=== PATIENT | female | born 1955 | race Caucasian/White ===

== ENCOUNTER 2021-07-23 13:06 | Emergency (ER) | payer MEDICARE, OTHER, SELFPAY ==
[2021-07-23 13:20] VITALS: BP 157/89; PULSE 73; RESP 16; TEMP 36.6; O2SAT 97
--- NOTE | 2021-07-23 13:33 | ED.GENADULT ---
HPI - General Adult General Chief complaint: Skin/Abscess/Foreign Body Stated complaint: Rash Rt arm Time Seen by Provider: 07/23/21 13:30 Source: patient and RN notes reviewed Mode of arrival: ambulatory Limitations: no limitations History of Present Illness HPI narrative: 66-year-old female presents with complaints of a painful skin lesion to the right arm for the past 4 weeks. ?Leatha reports lesion?on RT arm without drainage and increasing in size and pain over the past 7 days. ?Unable to see her PMD until August 08, 2021 so came to the [facility] care. ?AVINASH and band-aid without relief. Denies erythema or swelling to the area. ?Denies drainage. ?No streaking. ?Family history of skin cancer. ?Denies fever or chills. ?Denies nausea, vomiting, and abdominal pain. ?Tolerating po intake well. ?Remains active. ?The patient reports she has not been diagnosed with COVID-19. ?The patient reports she received 2 Moderna COVID-19 vaccines. ?The patient reports she is not waiting for the results of a COVID-19 lab test. ?The patient reports she does not have weakness, fatigue, or myalgia. ?The patient reports she does not have a new or worsening cough or shortness of breath. ?The patient reports she does not have any rhinorrhea, congestion, loss of taste or smell, sore throat, and diarrhea. ?Denies recent traveling. ?Denies concerns for COVID-19 or exposures. ?At this time, the patient is not suspected of having COVID-19. Some parts of this dictation were generated by voice recognition software and may contain typographical and/or grammatical inaccuracies. Related Data Allergies Allergy/AdvReac Type Severity Reaction Status Date / Time codeine AdvReac Vomiting Verified 07/23/21 13:31 Review of Systems Review of Systems: CONSTITUTIONAL: Denies fever, chills, sweats. EYES: Denies visual changes, redness, discharge. ENT: Denies rhinorrhea, congestion, sore throat, otalgia. CARDIOVASCULAR: Denies chest pain, palpitations, edema. RESPIRATORY: Denies dyspnea, wheezing, cough GASTROINTESTINAL: Denies abdominal pain, nausea, vomiting, diarrhea. SKIN: Complaints of a painful skin lesion to the right arm. Denies erythema or drainage. MUSCULOSKELETAL: Denies acute back pain, joint pain, or myalgia. NEUROLOGIC: Denies numbness or focal weakness. PSYCHIATRIC: Denies anxiety or depression. All other systems reviewed are negative, except as documented in HPI and below. [facility] Past Medical History Medical History (Updated 07/24/21 @ 00:01 by Kunal Adair) Ex-smoker for more than 1 year Hypertension Surgical History Surgical History (Updated 07/23/21 @ 19:50 by GERALDINE Martins) History of foot surgery LT History of hip surgery LT total History of hysterectomy History of tonsillectomy Family History Family History (Updated 07/23/21 @ 19:51 by GERALDINE Martins) Father Lung cancer Mother Skin cancer (melanoma) Social History Social History (Updated 07/23/21 @ 19:51 by GREALDINE Martins) Smoking status: Former smoker Tobacco type: cigarettes Second hand tobacco smoke exposure: No Smoking end date: 12/06/17 Alcohol intake: current Substance use: never Substance use type: does not use Living arrangements: with family Occupation/Education: retired Gender identity (if verbalized by the patient): Female Comments At time of signature, agree with the nurse past medical, surgical, social, and family history. There is relevant family history pertinent to the presenting complaint. Exam Narrative: GENERAL: This is a well-nourished, well-developed patient, in no apparent distress. Talks in full sentences and ambulates with steady gait without dyspnea. HEAD: Normocephalic, atraumatic. EYES: PERRL. Sclera clear/white. Vision is grossly intact. CARDIOVASCULAR: Regular rate and rhythm without murmurs, gallops, or rubs. RESPIRATORY: Clear to auscultation. Breath sounds equal bi
== END 2021-07-23 13:58 | disposition home or self-care (01) ==
PROVIDERS: Emergency Provider Nurse Practitioner Family; PCP Nurse Practitioner Family
DX: L98.9 Disorder of the skin and subcutaneous tissue, unspecified (principal); Z87.891 Personal history of nicotine dependence; I10 Essential (primary) hypertension
CPT/HCPCS: 99211; G0463

== ENCOUNTER 2021-09-17 16:16 | Emergency (ER) | payer MEDICARE, OTHER, SELFPAY ==
[2021-09-17 16:38] VITALS: BP 178/98; PULSE 101; RESP 20; TEMP 36.9; O2SAT 99
[2021-09-17 16:52] LABS: Basophils Percent Auto 0.6 % (0.2-1.2); Eosinophils Absolute Auto 0.2 K/mm3 (0-0.3); Eosinophils Percent Auto 3.2 % (0-4.4); Hematocrit 38.8 % (37.0-47.0); Immature Granulocyte Absolute 0.01 K/mm3 (0.00-0.031); Immature Granulocyte Percent A 0.2 % (0-0.5); Lymphocytes Absolute Auto 1.97 K/mm3 (0.9-3.2); Lymphocytes Percent Auto 31.9 % (18.3-44.2); Mean Corpuscular HGB Conc 33.5 g/dl (32-36); Mean Corpuscular Hemoglobin 31.7 pg (26-34); Mean Corpuscular Volume 94.6 fl (80-100); Mean Platelet Volume 9.8 fl (7.4-10.4); Monocytes Absolute Auto 0.6 K/mm3 (0.1-0.6); Monocytes Percent Auto 9.5 % (2.6-8.5); Neutrophils Absolute Auto 3.4 K/mm3 (1.3-6.7); Neutrophils Percent Auto 54.6 % (45.5-73.1); Platelet Count Result 324 k/mm3 (150-375); Red Cell Distribution Width 12.2 % (11.5-14.5); White Blood Count 6.2 K/mm3 (4.5-10.0)
[2021-09-17 17:05] LABS: Alanine Aminotransferase 22 U/L (4-35); Albumin Level 4.3 g/dL (3.5-5.1); Alkaline Phosphatase 43 U/L (38-126); Anion Gap 8 mmol/L (8-16); Aspartate Amino Transferase 29 U/L (14-36); Bilirubin,Total 0.2 mg/dL (0.2-1.3); Blood Urea Nitrogen 24 mg/dL (7-17); Calcium 10.1 mg/dL (8.4-10.2); Carbon Dioxide 30 mmol/L (22-30); Chloride 104 mmol/L (98-107); Estimated CRCL calculation 41 ml/min; Estimated Glomerular Filt Rate 55; Glucose 100 mg/dL (65-110); Potassium 4.1 mmol/L (3.4-5.0); Sodium 142 mmol/L (137-145)
--- NOTE | 2021-09-17 17:25 | PC.NURSE ---
saw leaving ER. Gait steady. no distress
--- NOTE | 2021-09-17 17:32 | PC.NURSE ---
called for pt - no answer from waiting room, checked bathroom and right outside the ER, no answer
[2021-09-17 17:42] LABS: Add Urine Microscopic? YES; Appearance Urine Clear (Clear); Bilirubin Urine Negative (Negative); Blood Urine Negative (Negative); Color Urine Yellow (Yellow); Glucose Urine UA Negative (Negative); Ketones Urine Negative (Negative); Leukocyte Esterase Ur Trace LEU/UL (Negative); Mucus Urine Rare /lpf; Nitrate Urine Negative (Negative); Protein Urine Negative (Negative); RBC Urine 0-2 /hpf (0-2); Specific Grav Ur 1.014 (1.001-1.035); Squamous Epithelial Cell Urine Rare /hpf (Few); Urobilinogen Urine Negative mg/dL (<2.0); WBC Urine 0-3 /hpf
== END 2021-09-17 17:25 | disposition left against medical advice (07) ==
LOC: ANHED 18:43
PROVIDERS: Emergency Medicine; PCP Nurse Practitioner Family
DX: R41.82 Altered mental status, unspecified (principal)
CPT/HCPCS: 36415; 80053; 81001; 85025; 99199

== ENCOUNTER 2022-05-31 10:12 | Emergency (ER) | payer MEDICARE, OTHER, SELFPAY ==
[2022-05-31 10:20] VITALS: BP 124/90; PULSE 76; RESP 20; TEMP 36.8; O2SAT 20
--- NOTE | 2022-05-31 10:38 | ED.GENADULT ---
HPI - General Adult General Chief complaint: Extremity Problem,Nontraumatic Stated complaint: Rt Hip and Back Pain History of Present Illness HPI narrative: Patient is a 67-year-old female who presents to the [facility] via POV for evaluation of right hip, right back, and inside of right thigh pain that began 1 week ago. She reports walking into [facility] when pain began. Pain is sharp and tight. She states, sometimes in my leg it feels like a tight ball . Aleve, Advil, and OTC back and leg medicine provides little relief. Pain worsens with walking and from a sitting to standing position. She has an appointment with her PCP, Zulma Esparza NP on06/16/22. Related Data Home Medications Medication Instructions Recorded Confirmed lisinopril 20 mg tablet 1 tablet PO DAILY 05/31/22 05/31/22 Allergies Allergy/AdvReac Type Severity Reaction Status Date / Time Antihistamines - Alkylamine AdvReac Intermediate Hives Verified 05/31/22 10:38 codeine AdvReac Intermediate Vomiting Verified 05/31/22 10:14 Review of Systems Review of Systems: Reports fall 1 month ago. Pertinent negatives: fever, chills, sweats, change in appetite, poor p.o. intake, malaise, calf tenderness, skin color changes, rash, warmth, swelling, numbness, tingling, loss of sensation, deformity, decreased range of motion, weakness, difficulty with ambulation/coordination, nausea, vomiting, lymphadenopathy, shortness of breath, chest pain, heart palpitations, and heart murmur. [facility] Past Medical History Medical History Ex-smoker for more than 1 year Hypertension Surgical History Surgical History History of foot surgery LT History of hip surgery LT total History of hysterectomy History of tonsillectomy Family History Family History Father Lung cancer Mother Skin cancer (melanoma) Social History Social History Smoking status: Former smoker Tobacco type: cigarettes Second hand tobacco smoke exposure: No Smoking end date: 12/06/17 Alcohol intake: current Substance use: never Substance use type: does not use Gender identity (if verbalized by the patient): Female Comments I have reviewed and agree with the patient's past medical, surgical, social, and family hx as documented by the RN. There is no relevant family history pertinent to the presenting complaint. Exam Narrative: GENERAL: Well-appearing, well-nourished, and in no acute distress. HEAD: Normocephalic, atraumatic. NECK: Supple. No Lymphadenopathy or nuchal rigidity appreciated. CHEST: Bilateral lung perez are clear to auscultation. No respiratory distress. No evidence of cough or pleuritic cp upon examination. HEART: Regular rate and rhythm. No murmur, gallop, or rub heard. EXTREMITIES: No evidence of injury, decreased ROM, swelling, cyanosis, hematoma, laceration, abrasion, deformity, rash, or puncture. No evidence of pain with palpation. Moderate pain elicited to medial aspect of right thigh, right hip, and back with all passive/active ROM. No evidence of dislocation, ligament laxity, effusion, or pain at rest. Pulses palpable at 2+, strength 5/5, and cap refill < 3 seconds in affected extremity. DTRs normal. Gait normal. SKIN: Warm, dry, no rash. NEURO: No focal deficits. Alert and oriented x3. Course Course Level of Care: Express Care Visit Vital Signs Vital signs: Vital Signs Temperature 98.2 F 05/31/22 10:20 Pulse Rate 76 05/31/22 10:20 Respiratory Rate 20 05/31/22 10:20 Blood Pressure 124/90 05/31/22 10:20 Pulse Oximetry 20 L 05/31/22 10:20 Oxygen Delivery Room Air 05/31/22 10:20 Temperature 98.2 F 05/31/22 10:20 Pulse Rate 76 05/31/22 10:20 Respiratory Rate 20 0
== END 2022-05-31 10:38 | disposition home or self-care (01) ==
PROVIDERS: Emergency Provider Nurse Practitioner Family; PCP Nurse Practitioner Family
DX: M79.18 Myalgia, other site (principal); I10 Essential (primary) hypertension; Z87.891 Personal history of nicotine dependence
CPT/HCPCS: 99213; G0463

== ENCOUNTER 2022-06-05 17:37 | Outpatient (CLI) | payer MEDICARE, OTHER, SELFPAY ==
--- NOTE | ~2022-06-05 | CT_ITS ---
EXAMINATION: CT lung screening DATE: 06/05/2022 17:58 INDICATION: Cigarette nicotine dependence TECHNIQUE: Computed tomography (CT) of the chest was performed without intravenous contrast. Automate d exposure control and iterative reconstruction technique were employed. Exam dose: 59.33 mGy-cm tot al exam DLP. COMPARISON: None FINDINGS: There is discoid atelectasis and/or scarring at the lung bases including middle lobe, right lower lobe and to a lesser extent lingula and left lower lobe. No pulmonary infiltrate or consolidation or pulmonary mass lesion. No hilar or mediastinal mass lesion or lymphadenopathy. Normal heart size. No pericardial or pleural effusion. Moderately prominent elevation right leaf of the diaphragm. Moderately large hiatal hernia. Normal morphology of the adrenal glands. Severe burst fracture deformity of T12. IMPRESSION: Lung RADS category 1: Negative Severe burst fracture deformity of T12 Reviewed, dictated and finalized at [facility]. Reviewed, dictated and finalized at location A.
== END 2022-06-05 17:38 | disposition home or self-care (01) ==
LOC: ANHIMG 17:45
PROVIDERS: PCP Nurse Practitioner Family; Visit Provider Nurse Practitioner Family
DX: Z12.2 Encounter for screening for malignant neoplasm of respiratory organs (principal); F17.211 Nicotine dependence, cigarettes, in remission
CPT/HCPCS: 71271

== ENCOUNTER 2022-06-12 12:19 | Outpatient (CLI) | payer MEDICARE, OTHER, SELFPAY ==
--- NOTE | ~2022-06-12 | MR_ITS ---
EXAMINATION: MR lumbar spine wo con DATE: 06/12/2022 13:20 INDICATION: Lumbar radiculopathy. TECHNIQUE: Magnetic resonance imaging (MRI) of the lumbar spine was performed without intravenous con trast. Sequences included sagittal T2-weighted FSE, sagittal T2-weighted FS FSE, sagittal T1-weighted FSE, and axial T2-weighted FSE. COMPARISON: Chest CT 06/05/2022 FINDINGS: There is 9 degrees dextrocurvature of thoracolumbar spine. There is a burst fracture of T12 with 4/5 loss of height, retropulsion of bone 4 mm into central spinal canal, and bone marrow edema. There is a chronic compression fracture of L3 with 1/5 loss of height. There is mildly decreased dis c height at L1-L2 and L2-L3 and severely decreased disc height at L5-S1 with endplate remodeling. The distal spinal cord signal intensity is normal. The conus medullaris is at T12. The following disc le vels are specifically discussed: L1-L2: The disc is bulging. There is mild bilateral facet joint osteoarthritis. There is mild bilater al neural foraminal stenosis. There is mild central canal stenosis. L2-L3: The disc is bulging. There is moderate bilateral facet joint osteoarthritis. There is mild aundrea ateral neural foraminal stenosis. There is mild central canal stenosis. L3-L4: The disc is bulging. There is severe bilateral facet joint osteoarthritis. There is mild bilat eral neural foraminal stenosis. There is mild central canal stenosis. L4-L5: The disc is bulging. There is severe bilateral facet joint osteoarthritis. There is mild bilat eral neural foraminal stenosis. There is mild central canal stenosis. L5-S1: The disc is bulging. There is moderate right and mild left facet joint osteoarthritis. There i s mild bilateral neural foraminal stenosis. There is mild central canal stenosis. IMPRESSION: 1. Severe lumbar spondylosis. 2. Stable T12 burst fracture, likely subacute or chronic. Reviewed, dictated and finalized at location A.
--- NOTE | ~2022-06-12 | MR_ITS ---
EXAMINATION: MR thoracic spine wo con DATE: 06/12/2022 13:20 INDICATION: Thoracic compression fracture. Lumbar radiculopathy. TECHNIQUE: Magnetic resonance imaging (MRI) of the thoracic spine was performed without intravenous c ontrast. Sagittal localizer T1-weighted FSE of the cervical spine was obtained. Thoracic spine sequen dilip included sagittal T2-weighted FSE, sagittal T1-weighted FSE, sagittal T2-weighted FS FSE, and axi al T2-weighted FSE. COMPARISON: Chest CT 06/05/2022 FINDINGS: There is 7 degrees levocurvature of upper thoracic spine. There is a burst fracture of T12 with 4/5 loss of height, retropulsion of bone 4 mm into central spinal canal, and bone marrow edema. There is moderately decreased disc height at T8-T9 with endplate remodeling. At T6-T7, there is a akbar tral protrusion. At T7-T8, there is a left central extrusion. There is multilevel facet joint osteoar thritis, moderate on the right at T3-T4 and T4-T5 and on the left at T1-T2. On the right, there is mi ld neural foraminal stenosis at T3-T4 and T4-T5. On the left, there is mild neural foraminal stenosis at T1-T2. There is mild central canal stenosis at T12. There is syringohydromyelia in thoracic spina l cord with maximum diameter of 2 mm. There is syringohydromyelia in cervical spinal cord with maximu m diameter of 5 mm. There is no Chiari 1 malformation. IMPRESSION: 1. 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 Cervical spine MRI without and with contrast is recommended. 2. Stable T12 burst fracture, likely subacute or chronic. 3. Mild thoracic spondylosis. Reviewed, dictated and finalized at location A. IMPRESSION: 1. 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 Cervical spine MRI withou t and with contrast is recommended. 2. Stable T12 burst fracture, likely subacute or chronic. 3. Mild thoracic spondylosis.
== END 2022-06-12 12:20 | disposition home or self-care (01) ==
PROVIDERS: PCP Nurse Practitioner Family; Visit Provider Student in an Organized Health Care Education/Training Program
DX: M25.551 Pain in right hip (principal); M54.16 Radiculopathy, lumbar region; S32.030A Wedge compression fracture of third lumbar vertebra, initial encounter for closed fracture; G95.0 Syringomyelia and syringobulbia; S22.081A Stable burst fracture of T11-T12 vertebra, initial encounter for closed fracture; M47.814 Spondylosis without myelopathy or radiculopathy, thoracic region; M43.16 Spondylolisthesis, lumbar region
CPT/HCPCS: 72146; 72148

== ENCOUNTER → 2023-10-14 12:37 | Outpatient (CLI) | payer MEDICARE, OTHER, SELFPAY ==
--- NOTE | ~2023-10-14 | MM_ITS ---
EXAMINATION: MM screening manpreet BI w mary ellen HISTORY: Screening mammogram TECHNIQUE: Craniocaudal and mediolateral oblique 3-D tomosynthesis images were obtained and synthetic 2-D images were generated. CAD analysis was submitted and interpreted. COMPARISON: No prior mammogram is available for comparison at this institution. BREAST PARENCHYMAL COMPOSITION: The breasts are heterogeneously dense, which may obscure small masses .. FINDINGS: RIGHT BREAST: There is focal asymmetry in the middle third of the upper inner breast. LEFT BREAST: There is focal asymmetry in the middle/posterior third of the upper inner breast. IMPRESSION: 1. Bilateral focal asymmetries. 2. Additional mammographic views and possible breast ultrasound are recommended. BI-RADS Category 0: Incomplete: Needs additional imaging evaluation. Reviewed, dictated and finalized at location A. [employer] IMPRESSION: 1. Bilateral focal asymmetries. 2. Additional mammographic views and possible breast ultrasound are recommended . BI-RADS Category 0: Incomplete: Needs additional imaging evaluation.
== END ==
PROVIDERS: PCP Nurse Practitioner Family; Visit Provider Nurse Practitioner Family
DX: Z12.31 Encounter for screening mammogram for malignant neoplasm of breast (principal); N64.89 Other specified disorders of breast
CPT/HCPCS: 77063; 77067

== ENCOUNTER → 2023-11-26 13:55 | Outpatient (CLI) | payer MEDICARE, OTHER, SELFPAY ==
--- NOTE | ~2023-11-26 | MMUS_ITS ---
EXAMINATION: MM diagnostic manpreet BI w mary ellen, US breast BI limited HISTORY: Bilateral focal upper inner quadrant mammographic asymmetries reported on 10/14/2020 bilater al screening mammogram TECHNIQUE: Additional 3-D tomosynthesis images of both breasts were performed and synthetic 2-D image s were generated. CAD analysis was submitted and interpreted. High resolution bilateral upper inner a nd lower inner quadrant breast ultrasound was performed. COMPARISON: 10/14/2023 bile screening mammogram FINDINGS: MAMMOGRAPHIC FINDINGS: There is heterogeneously dense stroma of both breasts, particularly prominent in the upper inner quad rants. No discrete mass lesion or architectural distortion is evident. The heterogeneously dense stro ma however may obscure masses. Ultrasound correlation was obtained. ULTRASOUND: No suspicious mass or shadowing, cyst or other significant sonographic abnormality is noted in the up per inner or lower inner quadrants of either breast. IMPRESSION: 1. No mammographic or sonographic evidence of malignancy 2. Routine annual mammographic screening is recommended. BI-RADS Category 2: Benign finding(s). Reviewed, dictated and finalized at location A. [employer] IMPRESSION: 1. No mammographic or sonographic evidence of malignancy 2. Routine annual mammographic screening is recommended. BI-RADS Category 2: Benign finding(s).
== END ==
PROVIDERS: PCP Nurse Practitioner Family; Visit Provider Nurse Practitioner Family
DX: R92.8 Other abnormal and inconclusive findings on diagnostic imaging of breast (principal); N64.89 Other specified disorders of breast
CPT/HCPCS: 76642; 77062; 77066; G0279

== ENCOUNTER 2024-02-06 08:34 | Emergency (ER) | payer MEDICARE, OTHER, SELFPAY ==
--- NOTE | ~2024-02-06 | XR_ITS ---
XR shoulder RT min 2V DATE: 02/06/2024 09:10 INDICATION: Fall last night. Anterior shoulder pain TECHNIQUE: 4 views COMPARISON: None FINDINGS: There is a comminuted fracture at the surgical neck extending into the proximal shaft of th e humerus with minimal displacement or significant. Normal alignment at the acromioclavicular and glenohumeral joints. IMPRESSION: Comminuted fracture of the surgical neck and proximal shaft of the humerus Reviewed, dictated and finalized at location A.
--- NOTE | 2024-02-06 08:38 | ED.GENADULT ---
HPI - General Adult General Chief complaint: Extremity Injury, Upper Stated complaint: Rt Shoulder Pain Due To Fall Time Seen by Provider: 02/06/24 08:38 5-year-old female patient presents to the [facility] accompanied by her daughter with complaints of right shoulder pain. Patient states that she tripped on her blanket last night and landed on a wooden floor onto her right shoulder. Patient states she was not able to get herself up off the floor for about 2 hours. Patient states she did defecate or urinate on herself while on the floor. Patient denies loss of consciousness or hitting her head at the time. Patient states she was able to eventually get her feet underneath her and get herself up after 2 hours. Patient states she did have some leftover Vicodin from a previous surgery last year and she to Vicodin yesterday and 1 today for the pain. Source: patient Mode of arrival: ambulatory Limitations: no limitations Related Data Home Medications Medication Instructions Recorded Confirmed lisinopril 20 mg tablet 1 tablet PO DAILY 05/31/22 02/06/24 Allergies Allergy/AdvReac Type Severity Reaction Status Date / Time Antihistamines - Alkylamine AdvReac Intermediate Hives Verified 02/06/24 08:50 codeine AdvReac Intermediate Vomiting Verified 02/06/24 08:50 Review of Systems Review of Systems: CONSTITUTIONAL: Denies fever, chills, or sweats. EYES: Denies visual changes, redness, or discharge. ENT: Denies rhinorrhea, congestion, sore throat, or otalgia. CARDIOVASCULAR: Denies chest pain, palpitations, or edema. RESPIRATORY: Denies cough or dyspnea. GASTROINTESTINAL: Denies abdominal pain, nausea, vomiting, or diarrhea. GENITOURINARY: Denies dysuria or hematuria. SKIN: Denies rash or itching. MUSCULOSKELETAL: Denies back pain, joint pain, or myalgia. Positive right shoulder pain status post fall NEUROLOGIC: Denies headache, numbness, or weakness. PSYCHIATRIC: Denies anxiety or depression. [facility] Past Medical History Medical History (Updated 02/06/24 @ 09:45 by GERALDINE Goncalves) Ex-smoker for more than 1 year Hypertension T12 compression fracture 2022 Surgical History Surgical History History of foot surgery LT History of hip surgery LT total History of hysterectomy History of tonsillectomy Family History Family History Father Lung cancer Mother Skin cancer (melanoma) Social History Social History (System 11/30/23 @ 10:17 by Ml Roberto) Smoking status: Former smoker Tobacco type: cigarettes Second hand tobacco smoke exposure: No Smoking end date: 12/06/17 Alcohol intake: current Substance use: never Substance use type: does not use Living arrangements: with family Occupation/Education: retired Gender identity (if verbalized by the patient): Female Exam Narrative: GENERAL: Well-appearing, well-nourished, and in no acute distress. HEAD: Normocephalic, atraumatic. EYES: PERRLA and EOMI. ENT: Nares clear, no rhinorrhea or epistaxis. Mucous membranes moist. NECK: Supple. No lymphadenopathy CHEST: Clear to auscultation. No respiratory distress. HEART: Regular rate and rhythm. No murmur heard. Normal peripheral pulses. ABDOMEN: Soft, nontender, nondistended, normal active bowel sounds. EXTREMITIES: The R shoulder is without obvious asymmetry or deformity when compared to the L shoulder. No surface trauma, ecchymosis, crepitus. No bony deformity or prominence of the humeral head No erythema, warmth. swelling noted over the right clavicle. tenderness to palpation to right clavicle, and A to C joint, humeral head. tenderness to palpation of the bicipital groove and soft tissues. tenderness to palpation of the muscles of the biceps/triceps, rotator cuff. pain and limitation with passive ROM. patient did not tolerate range of motion exa
[2024-02-06 08:47] VITALS: BP 152/84; PULSE 96; RESP 18; TEMP 37.2; O2SAT 98
== END 2024-02-06 10:02 | disposition home or self-care (01) ==
PROVIDERS: Emergency Provider Nurse Practitioner Family; PCP Nurse Practitioner Family
DX: S42.211A Unspecified displaced fracture of surgical neck of right humerus, initial encounter for closed fracture (principal); S42.301A Unspecified fracture of shaft of humerus, right arm, initial encounter for closed fracture; W18.09XA Striking against other object with subsequent fall, initial encounter; I10 Essential (primary) hypertension; Z87.891 Personal history of nicotine dependence
CPT/HCPCS: 73030; 99214; A4565; G0463

== ENCOUNTER 2024-02-23 13:03 | Outpatient (CLI) | payer MEDICARE, OTHER, SELFPAY ==
--- NOTE | ~2024-02-23 | XR_ITS ---
EXAM: XR shoulder RT min 2V DATE: 02/23/2024 13:35 HISTORY: S42.201A - Unspecified fracture of upper end of right hum... . COMPARISON: 02/06/2024. FINDINGS: Decreased mineralization. Redemonstration of the comminuted right humeral head fracture in volving the surgical neck with fracture lines that appear to involve the greater and lesser tuberosit ies. Suggestion of slightly increased impaction and displacement of multiple fragments. There is subl uxation of the humeral head in the scapular Y view and the internal rotation view. No new acute fract ure. No lytic or blastic lesion. No erosion or periosteal change. Soft tissues within normal limits. IMPRESSION: Comminuted right proximal humeral fracture with slightly altered alignment. Humeral head subluxation, correlate for findings of recurrent/reproducible dislocation. Reviewed, dictated and finalized at location K. IMPRESSION: Comminuted right proximal humeral fracture with slightly altered al ignment. Humeral head subluxation, correlate for findings of recurrent/reproduc ible dislocation.
== END 2024-02-23 13:04 | disposition home or self-care (01) ==
PROVIDERS: PCP Nurse Practitioner Family; Visit Provider Orthopaedic Surgery
DX: S42.201A Unspecified fracture of upper end of right humerus, initial encounter for closed fracture (principal); X58.XXXA Exposure to other specified factors, initial encounter
CPT/HCPCS: 73030

== ENCOUNTER 2024-04-25 13:16 | Outpatient (CLI) | payer MEDICARE, OTHER, SELFPAY ==
--- NOTE | ~2024-04-25 | CT_ITS ---
Noncontrast CT scan of the right shoulder CLINICAL HISTORY: Fracture TECHNIQUE: Axial noncontrast imaging of the right shoulder was performed. Sagittal and coronal reform atted images were constructed. Dose reduction technique was used on this scan by utilizing automated exposure control and iterative reconstruction technique. The dose-length product (DLP) was 165.01 mGy -cm. Findings: There is a comminuted fracture involving the surgical neck and greater tuberosity of the pr oximal humerus. Fracture fragments overall are mildly displaced. Suggestion of some callus formation laterally. Humeral head is normally located with respect to the glenoid. There is mild AC joint degen erative change. No gross soft tissue abnormality seen about the right shoulder. Visualized musculature appears essent ially unremarkable for noncontrast CT scan. Visualized right lung is clear. No right rib fracture see n. Right scapula intact. IMPRESSION: Comminuted mildly displaced fracture involving the surgical neck and greater tuberosity of the proxim al humerus. Suggestion of some callus formation laterally. Reviewed, dictated and finalized at location M. IMPRESSION: Comminuted mildly displaced fracture involving the surgical neck and greater tu berosity of the proximal humerus. Suggestion of some callus formation laterally .
== END 2024-04-25 13:17 | disposition home or self-care (01) ==
PROVIDERS: PCP Student in an Organized Health Care Education/Training Program; Visit Provider Orthopaedic Surgery
DX: S42.201A Unspecified fracture of upper end of right humerus, initial encounter for closed fracture (principal)
CPT/HCPCS: 73200

== ENCOUNTER 2024-08-28 08:30 | Outpatient (CLI) | payer MEDICARE, OTHER, SELFPAY ==
--- NOTE | ~2024-08-28 | XR_ITS ---
Right Shoulder Technique: AP and scapular Y views were obtained. Clinical History: Fracture follow-up COMPARISON: 06/28/2024 Findings: Continued routine interval healing of fracture of the surgical neck and greater tuberosity of the proximal right humerus. Osseous alignment is unchanged. The glenohumeral and acromioclavicular joint spaces are preserved. Soft tissues are unremarkable. Impression: Continued routine healing of fracture of the surgical neck and greater tuberosity of the right humeru s. Reviewed, dictated and finalized at location M. Impression: Continued routine healing of fracture of the surgical neck and greater tuberosi ty of the right humerus.
== END 2024-08-28 08:31 | disposition home or self-care (01) ==
PROVIDERS: Visit Provider Orthopaedic Surgery
DX: S42.211D Unspecified displaced fracture of surgical neck of right humerus, subsequent encounter for fracture with routine healing (principal); S42.251D Displaced fracture of greater tuberosity of right humerus, subsequent encounter for fracture with routine healing; X58.XXXA Exposure to other specified factors, initial encounter
CPT/HCPCS: 73030

== ENCOUNTER 2024-09-11 09:07 | Outpatient (CLI) | payer MEDICARE, OTHER, SELFPAY ==
--- NOTE | ~2024-09-11 | DEXA_ITS ---
Bone Density Report Name: CORDELIA BELLO Age: 69 Sex: Female Ethnicity: White Date of : 1955 Indication: postmenopausal; screening for osteoporosis; height loss; prior fracture; hysterectomy; Referring Provider: VIET, OMI Study: Bone densitometry was performed. Exam Date: September 11, 2024 Accession number: [id number] Bone Density: Region BMD T-score Z-score Classification AP Spine(L1-L4) 0.912 -1.2 1.0 Osteopenia Femoral Neck (Right) 0.521 -3.0 -1.1 Osteoporosis Total Hip (Right) 0.662 -2.3 -0.7 Osteopenia World Health Organization criteria for BMD impression classify patients as: Normal (T-score at or above -1.0), Osteopenia (T-score between -1.0 and -2.5), or Osteoporosis (T-score at or below -2.5). 10-year Fracture Risk: FRAX not reported because: Some T-score for Spine Total or Hip Total or Femoral Neck at or below -2.5 Prior hip or vertebral fracture Clinical Information Provided by Patient: Have had a previous hip or vertebral fracture Has had a low trauma fracture Has used the following medications: Fosamax (i.e. alendronate), Vitamin D Has the following medical conditions: Hysterectomy Patient maximum height was 63.0 Does not regularly consume dairy products Drinks caffeinated beverages Onset of menses at age 11 Number of children 2 Impression: The patient has established osteoporosis, based on the Right Femoral Neck T-score and the existence of a prior fracture. The patient has risk factors, including: previous fracture. Discussion: HIGH RISK OF FRACTURE. BONE DENSITY IS UNDESIRABLY LOW AT ONE OR MORE SKELETAL SITES, CONSISTENT WITH POSTMENOPAUSAL OSTEOPOROSIS. This patient's lowest T-score, in a patient who has previously fractured, meets the World Health Organization's (WHO) criteria for severe osteoporosis. In untreated patients, the risk of osteoporotic fracture increases approximately two-fold for each 1.0 SD decrease in T-score. Low bone density is not the only risk factor for fracture; also consider factors such as patient's age, frailty or poor health, risk of falling, risk of injury, previous osteoporotic fracture, family history of osteoporosis, cigarette smoking, low body weight, etc. Not everyone with low bone mineral density has osteoporosis; osteomalacia and other metabolic bone disorders should also be considered. Patients who have osteoporosis should be evaluated for specific diseases and conditions (secondary causes) that may cause or contribute to bone loss. The [place] [employer] Clinical Endocrinologists (AACE) and National Osteoporosis Foundation (NOF) recommend pharmacologic intervention for all postmenopausal women with a previous hip or vertebral fracture and a T-score in this range. The patient should follow a healthful lifestyle (good nutrition with adequate calcium and vitamin D, and appr
== END 2024-09-11 09:08 | disposition home or self-care (01) ==
LOC: ANHIMG 09:10
PROVIDERS: PCP Student in an Organized Health Care Education/Training Program; Visit Provider Student in an Organized Health Care Education/Training Program
DX: M81.0 Age-related osteoporosis without current pathological fracture (principal); M85.89 Other specified disorders of bone density and structure, multiple sites; Z78.0 Asymptomatic menopausal state
CPT/HCPCS: 77080

== ENCOUNTER 2025-05-31 11:00 | Outpatient (RCR) | payer MEDICARE, OTHER, SELFPAY ==
--- NOTE | 2025-04-04 11:47 | PTOPEVAL1 ---
Assessment and note entered by Kodi Moise Evaluation Information Assessment Status Evaluation ICD-10 Condition Codes (PT) Difficulty Walking R26.2,Abnormalities of gait and mobility R26.9 Subjective Information Pt. reports she started noticing trouble with her balance about 4-5 years ago. She reports that she has been falling more frequently and states that she is currently falling multiple times a week. She states that she has hx of osteopenia and has broken her shoulder in the past due to falls. She did have a JOSTIN on the left 22 years ago. She states that she is currently using a cane, but did recently purchase a described rollator walker. She states that she currently lives alone. Her sister lives nearby and checks on her frequently. She reports that she can stand for a maximum of 15 minutes due to fatigue and back pain. She reports that she does continue to drive and does most of her community activities. She states that she notices that she has difficulty with initiating movement especially after getting up from a seated position. 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 She reports that her goal for therapy is to walk more safely and efficiently. Reported Pain Level Pain Score 3: Self Report Assessment PT Clinical Summary Pt. is a 70 year old female who enters the clinic due to developed issues regarding her balance and safety. She presents with impaired gait, impaired safety with ambulation and transfers, impaired balance, generalized l.e. weakness, somatosensory deconditioning and functional decline. Encouraged use of the rollator walker following treatment on this date, as she demonstrates significant improvements in gait efficiency and safety with this particular AD. Continued skilled PT is indicated in order to improve these areas to allow the pt. to achieve improved safety and efficiency with IADL's. Plan of Care Interventions Gait Training,Manual Therapy,Neuro Re-education, Patient/Caregiver Education,Therapeutic Activities ,Therapeutic Exercise,Self-Care/Home Management PT Services Indicated Yes Treatment Frequency and 2x/week x 10 visits Duration These treatments will address the objective and functional deficits as defined above. The patient will be advanced safely and appropriately in order for the patient to progress towards his/her prior level of function. Additional exercises will be introduced and as well as a comprehensive home exercise program upon discharge, if needed, ?to ensure carryover of functional gains achieved in the clinic. This treatment plan has been reviewed and agreement upon by the patient.
--- NOTE | 2025-04-04 11:48 | OPREHPOC ---
Outpatient Therapy Plan of Care This is a Multidisciplinary Plan of Care that may contain components documented by all disciplines (PT, OT, and ST.) PT Problem 1 PT Problem #1 Knowledge Deficit PT Goal 1 Goal / Goal Update Pt. will be independent with a HEP addressing l.e. strength Pt. will demonstrate safe and appropriate use of rollator walker Target Visit 2 PT Problem 2 PT Problem #2 Impaired Balance PT Goal 1 Goal / Goal Update Pt. will improve Tinetti score to 19 or greater indicating improved safety. Pt. will be able to maintain standing on Airex foam for duration of 1 minute in tandem stance without assist or support Pt. will complete the 5 time sit to stand test in less than 13 seconds indicating decrease in fall risk Target Visit 10 PT Problem 3 PT Problem #3 Impaired Gait PT Goal 1 Goal / Goal Update Pt. will demonstrate ability to complete the 6 minute walk test over a distance of 700' with use of the rollator walker Target Visit 10 PT Problem 4 PT Problem #4 Impaired Strength PT Goal 1 Goal / Goal Update Pt. will present with 4+/5 gross bilateral l.e. strength. Target Visit 10
--- NOTE | 2025-05-04 12:49 | OPREHPOC ---
Outpatient Therapy Plan of Care This is a Multidisciplinary Plan of Care that may contain components documented by all disciplines (PT, OT, and ST.) PT Problem 1 PT Problem #1 Knowledge Deficit PT Goal 1 Goal / Goal Update Pt. will be independent with a HEP addressing l.e. strength Pt. will demonstrate safe and appropriate use of rollator walker Target Visit 2 Progress Met PT Problem 2 PT Problem #2 Impaired Balance PT Goal 1 Goal / Goal Update 1. Pt. will improve Tinetti score to 19 or greater indicating improved safety. 2. Pt. will be able to maintain standing on Airex foam for duration of 1 minute in tandem stance without assist or support 3. Pt. will complete the 5 time sit to stand test in less than 13 seconds indicating decrease in fall risk 05/04/25: Progressed in each measure, but still lacking Target Visit 10 Progress Partially Met PT Problem 3 PT Problem #3 Impaired Gait PT Goal 1 Goal / Goal Update Pt. will demonstrate ability to complete the 6 minute walk test over a distance of 700' with use of the rollator walker Target Visit 10 Progress Met PT Problem 4 PT Problem #4 Impaired Strength PT Goal 1 Goal / Goal Update Pt. will present with 4+/5 gross bilateral l.e. strength. 05/04/25- Lacking in left hip flexor resulting in poor foot clearance Target Visit 10 Progress Partially Met
--- NOTE | 2025-05-04 12:49 | PTOPPROG ---
Assessment and note entered by Peterson France, PT Evaluation Information Assessment Status Progress ICD-10 Condition Codes (PT) Difficulty Walking R26.2,Abnormalities of gait and mobility R26.9 Subjective Information Reports that overall she is still really strong in her legs and does not feel that strength is an issue. Feels her brain is not communicating with her legs well enough. Reports that she has been having some right sided low back pain at this point. Would like to continue with therapy to continue to work on balance and mobility. Assessment PT Clinical Summary Patient has seen some improvement in Tinetti score and functional mobility. She continues to have a lot of difficulty with turning and mobility with ambulation. Static activity is moderate, but showing difficulty with dynamic activity still at this point. Will continue to benefit form skilled therapy to address these deficits. Plan of Care Interventions Gait Training,Manual Therapy,Neuro Re-education, Patient/Caregiver Education,Therapeutic Activities ,Therapeutic Exercise,Self-Care/Home Management PT Services Indicated Yes Treatment Frequency and 2x/week x 10 visits Duration These treatments will address the objective and functional deficits as defined above. The patient will be advanced safely and appropriately in order for the patient to progress towards his/her prior level of function. Additional exercises will be introduced and as well as a comprehensive home exercise program upon discharge, if needed, ?to ensure carryover of functional gains achieved in the clinic. This treatment plan has been reviewed and agreement upon by the patient.
--- NOTE | 2025-05-31 11:18 | PCPTNOTE ---
Pt arrived 15 minutes later to her appt today, stated she thought all of her appts were at 11:15am
--- NOTE | 2025-05-31 12:03 | PTOPDC ---
Assessment and note entered by Elle Chavez, PT Evaluation Information Assessment Status Discharge ICD-10 Condition Codes (PT) Difficulty Walking R26.2,Abnormalities of gait and mobility R26.9 Subjective Information Pt continues to report difficulties with balance and overall safety with mobility. She does not think if she continued with therapy it would get better until she has surgery. She did see her neurosurgeon and depending on her next MRI they are considering surgery. She reports 3 falls within the last week due to tripping over her own feet or rugs in her house due to not clearing her foot. Another time she tried to get up from her couch too fast and fell. She reports daily compliance with her HEP and thinks she would feel comfortable continuing on her own with this for muscle strength. Reported Pain Level Pain Score 0: Self Report Assessment PT Clinical Summary Patient's condition has made little to no advancements in symptoms, balance, strength, and functional tolerance to ADLs after 18 sessions. Pt continues to present as a high fall risk with a worsening Tinetti score of 11/28. During multiple PT sessions the pt exhibited underlying neurological signs and symptoms of shuffling and festinating gait, freezing of gait when approaching thresholds, and increased LLE extensor tone with increased fatigue during ambulation. At this time the pt has optimized her CLOF and PT goals remain unmet with little to no progress made towards them. She was able to improve her endurance during the 6MWT to 1125 feet but continues to exhibit instability. Patient to DC from PT this date and continue with HEP as instructed. Pt to contact PT or PCP if questions or concerns arise. Plan of Care PT Services Indicated No
== END 2025-06-11 11:28 | disposition home or self-care (01) ==
LOC: ANHGOSHPT 11:00
PROVIDERS: PCP Student in an Organized Health Care Education/Training Program; Visit Provider Student in an Organized Health Care Education/Training Program
DX: R26.89 Other abnormalities of gait and mobility (principal); R42 Dizziness and giddiness
CPT/HCPCS: 97110; 97112; 97116; 97161; 97530